=== PATIENT | male | born 1990 | race African-American/Black ===

== ENCOUNTER 2022-03-03 10:52 | Emergency (ER) | payer SELFPAY ==
[~2022-03-03] VITALS: Ht 162.6 cm; Wt 70.3 kg
[2022-03-03] MEDS ORDERED: TETRACAINE HCL 0.5% OPTH SOLN 4 ML BTL OP ONE (12:00)
[2022-03-03] MEDS ORDERED: FLUORESCEIN SOD(OPTH) 1 MG STRP OP ONE (12:00)
[2022-03-03] MEDS ORDERED: TOBRAMYCIN SULFA5 ML OS (12:01)
[2022-03-03] MEDS ORDERED: ACULAR5 ML OS (12:02)
[2022-03-03] MEDS ORDERED: ERYTHROMYCIN (OPTH) 3.5 GM OINT OP ONE ×2 (12:07→12:30)
[2022-03-03] MEDS ORDERED: IBUPROFEN 600 MG TAB ONE (12:12)
[2022-03-03] MEDS ORDERED: IBUPROFEN 600 MG TAB PO ONE (12:30)
== END 2022-03-03 12:13 | disposition home or self-care (01) ==
LOC: FSED 11:03
DX: H57.12 Ocular pain, left eye (principal); T15.02XA Foreign body in cornea, left eye, initial encounter; F17.210 Nicotine dependence, cigarettes, uncomplicated
CPT/HCPCS: 99283

== ENCOUNTER 2022-07-01 14:10 | Emergency (ER) | payer SELFPAY ==
[~2022-07-01] VITALS: Ht 160 cm; Wt 67.1 kg
[~2022-07-01 14:10] MED LIST: ACULAR5 ML OS; TOBRAMYCIN SULFA5 ML OS
[2022-07-01 14:15] VITALS: O2SAT 97
== END 2022-07-01 14:45 | disposition home or self-care (01) ==
LOC: FSED 14:31
DX: Z48.02 Encounter for removal of sutures (principal)
CPT/HCPCS: 99282; S0630